=== PATIENT | male | born 1955 | race Caucasian/White ===

== ENCOUNTER 2017-01-13 13:35 | Inpatient (IN) | payer MEDICAID ==
[2017-01-13] MEDS ORDERED: Sodium Chloride 0.9% 1,000 ML IV ONE (13:43)
[2017-01-13 14:00] LABS: % BASOPHILS 0.2 % (0.0-2.0); % EOSINOPHILS 0.5 % (0.0-5.0); % LYMPHOCYTES 14.4 % (20.0-50.0); % MONOCYTES 5.9 % (2.0-10.0); HEMATOCRIT 42.4 % (39.0-49.0); HEMOGLOBIN 14.8 gm/dL (13.2-17.3); MEAN CELL VOLUME 88.5 fl (80-99); MEAN CORPUSCULAR HEMOGLOBIN 30.9 pg (26.0-30.0); MEAN CORPUSCULAR HGB CONC 34.9 pg (28.0-36.0); MEAN PLATELET VOLUME 7.5 fl; NEUTROPHILE ABSOLUTE 9.4 Th/cmm (1.8-8.0); PLATELET COUNT 370 Th/cmm (150-400); RED BLOOD COUNT 4.78 Mil/cmm (4.30-5.70); RED CELL DISTRIBUTION WIDTH 12.7 % (11.5-20.0); WHITE BLOOD COUNT 11.9 Th/cmm (4.8-10.8)
--- NOTE | 2017-01-13 14:00 | ED Physician Chart ---
Chief Complaint/HPI - Patient Information Date Seen:: 01/13/17 Time Seen:: 13:48 Chief Complaint:: weakness History of Present Illness:: THIS IS A 61 YR MALE BIB EMS FROM HOME FOUND LETHARGIC AND WEAK. HE IS A DIABETIC WITH HYPERTENSION AND ELEVATED LIPIDS. HE DENIES HAVING CHEST PAIN, ABDOMINAL PAIN BUT ADMITS TO HEAD PAIN. HE DENIES HAVING HEART DISEASE AND A STROKE. HE DENIES HAVING COUGH, COLD AND CHEST CONGESTION. HE DENIES SMOKING AND BUT DRINKS SOCIALLY. THE LAST TIME HE ATE WAS YESTERDAY AT 1600 HRS. HE HAS HAD SOME NAUSEA SINCE YESTERDAY. HIS STATES THAT HE WAS UNCONSCIOUS WAS ALMOST GONE AND NEAR SYNCOPE. Allergies:: Allergies Allergy/AdvReac Type Severity Reaction Status Date / Time No Known Allergies Allergy Verified 01/13/17 13:45 Vitals:: Vital Signs - 8 hr 01/13/17 13:46 Temp 100.2 F HR 104 RR 22 BP 192/89 O2 Sat % 96 Historian:: Patient, EMS Review:: Nurse's Note Reviewed Review of Systems - Review of Systems General/Constitutional: Fever, No chills, No weight loss, Weakness, Diaphoresis , No edema, No loss of appetite Skin: No skin lesions, No rash, No bruising Head: No headache, No light-headedness Eyes: No loss of vision, No pain, No diplopia ENT: No earache, No nasal drainage, No sore throat, No tinnitus Neck: No neck pain, No swelling, No thyromegaly, No stiffness, No mass noted Cardio Vascular: No chest pain, No palpitations, No PND, No orthopnea, No edema Pulmonary: No SOB, No cough, No sputum, No wheezing GI: No nausea, No vomiting, No diarrhea, No pain, No melena, No hematochezia, No constipation, No hematemesis G/U: No dysuria, No frequency, No hematuria Musculoskeletal: No bone or joint pain, No back pain, No muscle pain Endocrine: No polyuria, No polydipsia Psychiatric: No prior psych history, No depression, No anxiety, No suicidal ideation Hematopoietic: No bruising, No lymphadenopathy Allergic/Immuno: No urticaria, No angioedema Neurological: No syncope, No focal symptoms, No weakness, No paresthesia, No headache, No seizure, No dizziness, No confusion, No vertigo Past Medical History - Past Medical History Obtainable: Yes Past Medical History: HTN, DM Family History: None Social History: Non Smoker, No Alcohol, No Drug Use, Employed Surgical History: Appendectomy Psychiatricy History: None Medication: Reviewed Family Medical History - Family Member Mother Ethnicity: Living Status: Hx Family Cancer: No Hx Family Coronary Artery Disease: No Hx Family Congestive Heart Failure: No Hx Family Hypertension: No Hx Family Stroke: No Hx Family Diabetes: Yes Hx Family Seizures: No Hx Family Dementia: No Hx Family AIDS: No Hx Family HIV: No Hx Family COPD: No Hx Family Hepatitis: No Hx Family Psychiatric Problems: No Hx Family Tuberculosis: No Physical Exam - Physical Examination General/Constitutional: Awake, Well-developed, well-nourished, Alert, No distress, GCS 15, Non-toxic appearing, Ambulatory Head: Atraumatic Eyes: Lids, conjuctiva normal, PERRL, EOMI Skin: Nl inspection, No rash, No skin lesions, No ecchymosis, Well hydrated, No lymphadenopathy ENMT: External ears, nose nl, Nasal exam nl, Lips, teeth, gums nl Neck: Nontender, Full ROM w/o pain, No JVD, No nuchal rigidity, No bruit, No mass, No stridor Respiratory: Nl effort/Exclusion, Clear to Auscultation, No Wheeze/Rhonchi/Rales Cardio Vascular: RRR, No murmur, gallop, rubs, NL S1 S2 GI: No tenderness/rebounding/guarding, No organomegaly, No hernia, Normal BS's, Nondistended, No mass/bruits, No McBurney tenderness : No CVA tenderness Extremities: No tenderness or effusion, Full ROM, normal strength in all extremities, No edema, Normal digits & nails Neuro/Psych: Alert/oriented, DTR's symmetric, Normal sensory exam, Normal motor strength, Judgement/insight normal, Mood normal, Normal gait, No focal deficits Misc: normal gait, Normal back, No paraspinal tenderness Labs/Radiology/EKG Results - Lab Results Results: Laboratory Tests 01/13/17 13:39 POC Glucose 145 H - Radiology Results Results: CHEST X-RAY = NAD CT SCAN OF THE BRAIN = NEG FOR CVA - EKG Interpretations EKG Time:: 13:51 Rate & Rhythm: 101 SINUS TACHYCARDIA [place]: LEFT Assessment - Assessment General Assessment: NEAR SYNCOPE ED Septic Shock - . Is Septic Shock (SBP<90, OR Lactate>4 mmol\L) present?: No - <6hrs of presentation: Vital Signs: Vital Signs - 8 hr 01/13/17 13:46 Temp 100.2 F HR 104 RR 22 BP 192/89 O2 Sat % 96 Reassessment (Disposition) - Reassessment Reassessment Condition:: Improved - Diagnosis Diagnosis:: NEAR SYNCOPE FEVER DIABETES MELLITUS THYROID DISEASE - Patient Disposition Discharge/Transfer:: Acute Care w/in this hosp Admitted to:: Telemetry Admitting Medical Physician:: Dhaval Handley Condition at Disposition:: Improved ED Discharge Plan - Patient Disposition Admit/Discharge/Transfer: Acute Care w/in this hosp Condition at Disposition: Improved
[2017-01-13 14:11] LABS: INR 1.17 (0.5-1.4); PROTHROMBIN TIME (TEST) 12.3 SECONDS (9.5-11.5)
[2017-01-13] MEDS ORDERED: Acetaminophen 500 MG TAB PO ONE (14:12)
[2017-01-13 14:25] LABS: ALB/GLOB RATIO 1.4 (1.0-1.8); ALKALINE PHOSPHATASE 51 U/L (34-104); ANION GAP 11.6 (7.0-16.0); BILIRUBIN,TOTAL 0.8 mg/dL (0.3-1.0); BUN - UREA NITROGEN 12 mg/dL (7-25); BUN/CREATININE RATIO 13.3; CALCIUM SERUM 9.4 mg/dL (8.6-10.3); CHLORIDE 104 mEq/L (98-107); CHOLESTEROL 242 mg/dL (<200); CREATININE - SERUM 0.9 mg/dL (0.7-1.3); GLUCOSE 161 mg/dL (70-105); POTASSIUM SERUM 3.6 mEq/L (3.5-5.1); SGOT 14 U/L (13-39); SGPT/ALT 16 U/L (7-52); SODIUM SERUM 133 mEq/L (136-145); TRIGLYCERIDES 170 mg/dL (<150)
[2017-01-13] MEDS ORDERED: Acetaminophen 500 MG TAB ONE (14:49)
[2017-01-13] MEDS ORDERED: cefTRIAXone 1 GM in Sodium Chloride 0.9% 50 ML IV ONE (16:04)
--- NOTE | 2017-01-13 16:25 | Diagnostic Imaging Report ---
CT scan of the brain without intravenous contrast HISTORY: Headache Total DLP equals 610 CTDI equals 34.9 Axial sections were obtained from the base of the skull to the vertex. There is a normal ventricular system size for age. No acute parenchymal abnormalities. No intracerebral hemorrhage. No mass effect or shift of midline structures. No extra-axial masses or abnormal fluid collections. Faint atherosclerotic calcification noted in the region of the vertebral arteries at the base of the skull. Mild mucosal thickening noted in the posterior aspect of the right maxillary sinus. IMPRESSION: 1. No acute abnormalities 2. Atherosclerotic vascular changes
--- NOTE | 2017-01-13 16:26 | Diagnostic Imaging Report ---
Portable chest x-ray History: Fever Allowing for portable technique the heart size is normal. No focal pulmonary parenchymal processes. No hilar or mediastinal abnormalities. Impression: No acute abnormalities.
[2017-01-13 17:09] LABS: URINE BILIRUBIN NEGATIVE (NEGATIVE); URINE BLOOD TRACE (NEGATIVE); URINE GLUCOSE (UA) NEGATIVE (NEGATIVE); URINE KETONE NEGATIVE (NEGATIVE); URINE PH 6.5 (4.6 - 8.0); URINE PROTEIN NEGATIVE (NEGATIVE); URINE UROBILINOGEN 0.2 E.U./dL (0.2 - 1.0)
[2017-01-13 17:12] LABS: URINE BACTERIA OCCASIONAL /hpf (NONE SEEN); URINE COLOR YELLOW; URINE EPITHELIAL CELLS RARE /lpf (FEW); URINE WBC 0-2 /hpf (0-5)
[2017-01-13 17:15] LABS: AMPHETAMINE URINE NEGATIVE (NEGATIVE); BARBITURATES URINE NEGATIVE (NEGATIVE); METHADONE URINE NEGATIVE (NEGATIVE)
[2017-01-13] MEDS ORDERED: Pneumococcal Vaccine 0.5 mL Vial IM ONE (18:55)
[2017-01-13] MEDS: Sodium Chloride 0.9% 1,000 ML IV SCH (19:14)
--- NOTE | 2017-01-14 00:21 | History & Physical ---
ADMIT DATE: 01/13/2017 CHIEF COMPLAINT: The patient presented to [facility] on 01/13/2017, with severe headache, gross fatigue, gross weakness, altered level of consciousness, recent episode of syncope, multiple near vomiting episodes with dry heaves. RECENT MEDICAL HISTORY: A 61-year-old male, known hypertensive, known diabetic, with a history of occasional social drinking. No cigarette smoking. Woke up on the day prior feeling badly and on Monday morning called the ambulance after he felt that he had passed out with a severe headache. Paramedics brought the patient to [facility] on Monday01/13/2017 and initial tests were run and the Emergency Department physician evaluated the patient thoroughly. LABORATORY DATA: Hemoglobin A1c 6.2, thyroid below normal at 0.28. Cholesterol grossly high 242, triglycerides elevated at 170. LDL grossly elevated at 201. Sodium 133, glucose elevated at 161. Troponin 1 normal at 0.01. White blood cell count grossly elevated 11,900. CT scan of the head normal. Chest: Normal. EKG: Sinus tachycardia, left axis deviation, T-wave abnormality, all considered a borderline EKG. FAMILY HISTORY: The patient lives by himself. Family ties are not known at this time. SOCIAL HISTORY: As already mentioned, no cigarette smoking. Occasional social drinking. ALLERGIES: No known allergies. REVIEW OF SYSTEMS: HEENT: Significant for today's admission and that the patient had a severe frontal headache and a dry throat. CHEST: Not significant for today's admission. LUNGS: Not significant for today's admission. HEART: Significant for today's admission and that the patient presented with tachycardia. ABDOMEN: Significant for today's admission and that the patient had multiple episodes of near vomiting over the last 24-36 hours. EXTREMITIES: Not significant for today's admission. NEUROLOGICAL: Significant for today's admission and that the patient relates a syncope episode recently and severe headache. PSYCHIATRIC: Not significant for today's admission. PHYSICAL EXAMINATION: HEENT: Tympanic membranes intact bilaterally. Oropharynx intact. Extraocular motion intact. Pupils equally reactive to light and accommodation. Fundi intact bilaterally. Cephalous was normal. CHEST: Inspiratory and expiratory movement normal. LUNGS: Clear to auscultation. CARDIAC: Borderline tachycardia. No gross murmurs. ABDOMEN: Tender to palpation in all 4 quadrants. Increased peristaltic bowel sounds in all 4 quadrants. EXTREMITIES: Motor 5/5. Sensory intact all 4 extremities. NEUROLOGICAL: Cerebellum intact. PSYCHIATRIC: Alert and oriented x 4. GENITALIA: Refused exam. IMPRESSION: 1. Syncope episode. 2. Severe headache. 3. Extreme fatigue. 4. Acute gastroenteritis. 5. Hypertriglyceridemia. 6. Hyperthyroidism, initially. 7. Abnormal EKG, rule out cardiac pathology. 8. Leukocytosis, acute infection, current. 9. Diabetes. PLAN: 1. Admit to medical surgery with telemetry. Cardiology consult with Dr. Milvia Shah for borderline EKG, sinus tachycardia, left axis deviation, T-wave abnormalities. Neurology consult with Dr. Cisneros for severe headache and syncope episode. 2. Normal saline 0.9% flowing 100 mL per hour for the first 10 hours. Rocephin 1000 mg IV piggyback q.12 hours. Regular diet. Continue regular medications. Additional EKG in the a.m. with troponin 1 in the a.m. BNP in the a.m. D-dimer in the a.m. Additional chest x-ray in the a.m. JOB# [id number]
[2017-01-14] MEDS: Sodium Chloride 0.9% 1,000 ML IV SCH ×2 (04:14→15:27)
[2017-01-14] MEDS: cefTRIAXone 1 GM in 0.9% NS 50 ML IV SCH ×2 (04:15→15:26)
[2017-01-14 07:40] LABS: TROP I 0.01 ng/mL (0.01-0.05)
[2017-01-14 10:21] LABS: BNP 43.8 pg/mL (5.0-100.0)
--- NOTE | 2017-01-14 10:41 | Diagnostic Imaging Report ---
Exam: Chest portable exam HISTORY: Fever: Findings: Portable summation of chest upright at 0929 hours reviewed, no prior studies available for comparison. Bony thorax is intact. Mediastinal structures midline the heart is not enlarged. The costophrenic angles are clear. No acute pulmonic infiltrates identified. IMPRESSION: No acute disease.
--- NOTE | 2017-01-14 13:02 | Consultation ---
DATE OF CONSULTATION: 01/14/[address] Handley. HISTORY AND PHYSICAL: This is 61-year-old male patient who woke up in the morning complaining of headache, dizziness, nearly syncopal episode. At this time, the patient was brought by ambulance to the Emergency Room and the patient is admitted. The patient's troponin level is normal. Hemoglobin A1c is 6.2. PAST MEDICAL HISTORY: Hypertension, diabetes. FAMILY HISTORY: Unremarkable. SOCIAL HISTORY: No history of smoking, alcohol abuse. ALLERGIES: No known allergies. PHYSICAL EXAMINATION: VITAL SIGNS: Blood pressure 130/80, pulse 70, respirations 20. HEAD: Normocephalic. No lumps or bumps. EYES: Pupils equal, reactive to light. Fundi show AV nicking, sclerae white, conjunctivae pink. NECK: Carotid 2+. Normal upstroke. JVD flat. Thyroid not palpable. Lymph nodes not palpable. CHEST: Shows increased AP diameter. No kyphosis, scoliosis. LUNGS: Bilateral bronchovesicular breath sounds. HEART: PMI, fifth intercostal space with lateral to midclavicular line. S1, S2. No S3, S4. Systolic murmur, grade 2/6, lower left sternal border without radiation. ABDOMEN: Soft. Liver and spleen not palpable. No organomegaly. Bowel sounds active. NEUROLOGIC: No focal neurological deficit. EXTREMITIES: Peripheral pulses 2+. No pedal edema. CLINICAL IMPRESSION: Vertigo, near syncope, severe headache. Gastroenteritis, hyperlipidemia, hypertension. PLAN: Admit the patient. We will get echocardiogram, monitor the patient on telemetry bed and watch the patient. The patient will also start medication for and hyperlipidemia. JOB# [id number]
--- NOTE | 2017-01-14 23:13 | Admit Criteria Form ---
Admit Criteria Forms - Admit Criteria Procedure: SYNCOPE Clinical Indications for Admission to Inpatient Care ( Place 'X' for any and all applicable criteria): Admission is indicated for syncope and ANY ONE of the following (1)(2)(3)(4)(5) (6)(7) : [ X]I. Inpatient admission required rather than observation care (Also use Syncope: Observation Care Criteria as appropriate) because of ANY ONE of the following: [ ]a) Hemodynamic instability that is severe or persistent [ ]b) Cardiac arrhythmias of immediate concern identified or strongly suspected (eg, needs electrophysiologic study) [ ]c) Acute coronary syndrome identified (Also use Myocardial Infarction or Angina Criteria form ) [ ]d) Structural cardiac disorder (eg, aortic stenosis) suspected as cause that requires immediate correction [ ]e) Respiratory symptoms (eg, dyspnea, tachypnea) that are severe or persistent [ ]f) Neurologic signs or symptoms that are severe or persistent ( eg, stroke, seizures, altered mental status) [ ]g) Severe electrolyte abnormalities requiring inpatient care [ ]h) Supplemental oxygen or respiratory treatment for over 24 hrs that are performable only in acute inpatient setting [ ]i) IV fluid to replace significant ongoing (eg, for over 24 hrs ) losses (>3 L/m2 per day) [ ]j) Continuous intravenous infusion of anticoagulation, platelet inhibitor, vasoactive, or antiarrhythmic medication(15)(16) [ ]k) Pulmonary artery catheter monitoring [ ]l) Temporary pacemaker placement(17) [ ]m) Emergent cardioversion(18) [X ]n) Other conditions, treatment or monitoring requiring inpatient admission [ ]II. Suspicion of imminently dangerous cause (eg, rare causes like pericardial tamponade, pulmonary embolism) [ ]III. Syncope causing severe injury requiring hospitalization Extended stay beyond goal length of stay may be needed for(28) [ ]a) Dangerous arrhythmia(15)(23)(27)(29) [ ]b) Myocardial ischemia [ ]c) Seizure disorder [ ]d) Syncope-related injuries The original [facility] content created by [facility] has been revised. The portions of the content which have been revised are identified through the use of italic text or in bold, and [facility] has neither reviewed nor approved the modified material. All other unmodified content is copyright [facility]. Please see references footnoted in the original [facility] edition 2016 Admit Criteria Met?: Yes
[2017-01-15] MEDS: Sodium Chloride 0.9% 1,000 ML IV SCH (02:44)
[2017-01-15] MEDS: cefTRIAXone 1 GM in 0.9% NS 50 ML IV SCH ×2 (04:45→16:48)
[2017-01-15 05:45] LABS: % BASOPHILS 1.2 % (0.0-2.0); % EOSINOPHILS 2.5 % (0.0-5.0); % LYMPHOCYTES 22.1 % (20.0-50.0); % MONOCYTES 8.5 % (2.0-10.0); % NEUTROPHILS 65.7 % (40.0-80.0); HEMATOCRIT 39.8 % (39.0-49.0); HEMOGLOBIN 13.7 gm/dL (13.2-17.3); MEAN CELL VOLUME 90.2 fl (80-99); MEAN CORPUSCULAR HEMOGLOBIN 31.1 pg (26.0-30.0); MEAN CORPUSCULAR HGB CONC 34.4 pg (28.0-36.0); MEAN PLATELET VOLUME 7.7 fl; NEUTROPHILE ABSOLUTE 6.4 Th/cmm (1.8-8.0); PLATELET COUNT 307 Th/cmm (150-400); RED BLOOD COUNT 4.41 Mil/cmm (4.30-5.70); RED CELL DISTRIBUTION WIDTH 12.6 % (11.5-20.0); WHITE BLOOD COUNT 9.6 Th/cmm (4.8-10.8)
[2017-01-15] MEDS: HYDROmorphone 1 mg/mL 1mL Syr IVP PRN (09:10)
[2017-01-16] MEDS: Sodium Chloride 0.9% 1,000 ML IV SCH ×2 (03:14→19:28)
[2017-01-16] MEDS: cefTRIAXone 1 GM in 0.9% NS 50 ML IV SCH ×2 (04:10→15:53)
--- NOTE | 2017-01-16 14:33 | Cardiology ---
01/14/[address] Handley. M-MODE ECHOCARDIOGRAM: Mitral valve, anterior leaflet of mitral valve shows normal excursion, EF velocity. Posterior leaflet of mitral valve shows normal excursion. Left ventricular posterior wall shows increased thickness, normal excursion. Interventricular septum shows increased thickness, normal excursion, hypertrophy of the left ventricle, ejection fraction 60%. Left atrium normal. Aortic root shows normal dimension, normal excursion of aortic leaflets. CONCLUSION: Hypertrophy of the left ventricle, ejection fraction 60%. 2D ECHO: Long axis view showed normal sized left ventricle with hypertrophy of the left ventricle. Left atrium normal. Aortic root shows normal dimension, normal excursion of aortic leaflets. Short axis view of mitral valve normal. Short axis view of aortic valve normal. Apical four chamber view showed normal sized left ventricle, left atrium, right ventricle, right atrium, tricuspid and mitral valve, ejection fraction 60%. CONCLUSION: Hypertrophy of the left ventricle, ejection fraction 60%. Doppler study showed trace tricuspid regurgitation, prominent A wave consistent with poor compliance of left ventricle. CONCLUSION: Hypertrophy of the left ventricle, ejection fraction 60%, trace tricuspid regurgitation. JOB# [id number]
[2017-01-16] MEDS: HYDROmorphone 1 mg/mL 1mL Syr IVP PRN (15:53)
--- NOTE | 2017-01-17 03:46 | Consultation ---
DATE OF CONSULTATION: 01/16/2017 HISTORY OF PRESENT ILLNESS: This is a 61-year-old male who complains of headache, kind of abrupt onset on . The headache persisted for a few days, somewhat better today. back of the head, feels tightness in the neck. The patient's CT scan of the head negative. PAST MEDICAL HISTORY: Some headache in the distant past. The patient with history of hyperlipidemia. The patient has thyroid disorder and pre-diabetic. MEDICATIONS: Per reconciliation. REVIEW OF SYSTEMS: Twelve-point negative except for above. PHYSICAL EXAMINATION: VITAL SIGNS: Temperature 98.2, blood pressure 140/70, and pulse is 74. NECK: Supple, no bruits. HEART: Sounds S1 and S2. LUNGS: Clear. NEUROLOGIC: Awake, alert, answering all questions. Speech is normal. Cranial: Pupils react to light. Full eye movement. No nystagmus. No facial weakness. Motor: Upper extremity 5/5, lower extremity 5/5. Reflexes 1+. INVESTIGATIONS: The TSH is 0.28. RPR is negative. CT scan of head is negative. IMPRESSION: 1. Headache, somewhat abrupt onset, rule out central nervous system bleed. We will go ahead and do an MRI of the head with MRA of the head. 2. Question of syncope. 3. Hyperlipidemia. 4. Thyroid disorder. 5. Diabetes. PLAN: MRI, head MRA. We will check sed rate, CRP. JOB# [id number]
[2017-01-17] MEDS: cefTRIAXone 1 GM in 0.9% NS 50 ML IV SCH ×2 (04:22→16:34)
[2017-01-17] MEDS: Sodium Chloride 0.9% 1,000 ML IV SCH (14:25)
--- NOTE | 2017-01-17 15:35 | Diagnostic Imaging Report ---
MRI of the brain without intravenous contrast HISTORY: Stroke, CVA Multiple MRI sequences were obtained the axial, coronal, and sagittal planes. There is a normal ventricular system size for age. There is prominence of cerebral sulci and subarachnoid cisterns reflecting a degree of cerebral atrophy. No significant focal supratentorial lesions are seen. Diffusion images are unremarkable with no evidence of acute focal process or even. The cerebellum appears normal. No focal lesions are seen. The brainstem is normal. The seventh/eighth nerve complexes are seen bilaterally and appear normal. No extra-axial masses or abnormal fluid collections. No acute abnormality seen in the region of the sella turcica/pituitary gland. Normal aeration of the paranasal sinuses. IMPRESSION: 1. No acute abnormalities 2. Mild generalized cerebral atrophy
--- NOTE | 2017-01-17 15:36 | Diagnostic Imaging Report ---
MR angiogram (MRA) of the brain HISTORY: Stroke, CVA Multiple MRI sequences including SPGR and 3-D TOF sequences were obtained. The exam demonstrates a normal caliber of the distal portions of the internal carotid arteries. No abnormalities are seen within the intracavernous portions of the internal carotid arteries. The distal vertebral and basilar arteries appear normal. The posterior communicating arteries are not well visualized. No other abnormalities are seen about the [place]. Specifically, no aneurysms or vascular malformations are seen. There is normal positioning of the anterior and middle cerebral arteries. IMPRESSION: Negative examination.
== END 2017-01-17 16:45 | disposition home or self-care (01) | DRG 207 ==
LOC: ER 13:35 → TELE 16:58 → MSI 01-15 13:26
PROVIDERS: ADMIT General Practice; ATTEND General Practice
DX: I95.9 Hypotension, unspecified (principal); I10 Essential (primary) hypertension; D72.829 Elevated white blood cell count, unspecified; E05.90 Thyrotoxicosis, unspecified without thyrotoxic crisis or storm; E11.9 Type 2 diabetes mellitus without complications; J01.90 Acute sinusitis, unspecified; K52.9 Noninfective gastroenteritis and colitis, unspecified; E78.1 Pure hyperglyceridemia; E78.5 Hyperlipidemia, unspecified; R51 Headache; R53.83 Other fatigue; R42 Dizziness and giddiness; Z90.49 Acquired absence of other specified parts of digestive tract; Z83.3 Family history of diabetes mellitus; R00.0 Tachycardia, unspecified; R50.9 Fever, unspecified
CPT/HCPCS: 36415-UA; 70450-TC; 71010-TC; 80053-TC; 80061-TC; 80307; 81001-TC; 82948-90; 83036-90; 83880-TC; 84443-TC; 84484-TC; 85025-TC; 85379-TC; 85610-TC; 85652-TC; 85730-TC; 86141-TC; 86592-TC; 93005; 96375; J0696; J1170; J1885; J7030; Z7610; Z7610-TC